=== PATIENT | female | born 1985 | race Caucasian/White ===

== ENCOUNTER 2019-06-16 17:33 | Outpatient (CLI) | payer OTHER ==
[~2019-06-16] VITALS: Ht 154.9 cm; Wt 77.7 kg
[2019-06-16 18:02] VITALS: BP 114/66
[2019-06-16 20:24] LABS: MICROSCOPIC NOT IND
== END 2019-06-16 20:55 | disposition home or self-care (01) ==
LOC: LDOP 17:33
PROVIDERS: ATTEND Obstetrics & Gynecology
DX: Z34.83 Encounter for supervision of other normal pregnancy, third trimester (principal); R10.9 Unspecified abdominal pain; Z3A.32 32 weeks gestation of pregnancy
CPT/HCPCS: 59025; 81003; 87086; 99211; G0463

== ENCOUNTER 2019-08-07 07:55 | Inpatient (IN) | payer OTHER ==
[~2019-08-07] VITALS: Ht 170.2 cm; Wt 81.8 kg
[2019-08-07] MEDS ORDERED: OXYTOCIN 30U/ 0.9% NaCL 500ML 500 ML IV PRN (08:09)
[2019-08-07] MEDS ORDERED: OXYTOCIN 30U/ 0.9% NaCL 500ML 500 ML IV ONE (08:09)
[2019-08-07 08:15] VITALS: BP 117/61
[2019-08-07] MEDS ORDERED: PLEASE ENTER HEIGHT AND WEIGHT MC SCH (08:30)
[2019-08-07] MEDS ORDERED: SODIUM CITRATE/CITRIC ACID 30 ML UDC PO PRN (08:30)
[2019-08-07] MEDS ORDERED: FENTANYL PF 100 MCG/2ML IVPush PRN (08:30)
[2019-08-07] MEDS ORDERED: TERBUTALINE 1 MG/ML, 1ML IVPush PRN (08:30)
[2019-08-07] MEDS ORDERED: METOCLOPRAMIDE 5 MG/ML, 2ML IVPush PRN (08:30)
[2019-08-07] MEDS ORDERED: CALCIUM CARBONATE 500 MG TAB.CHEW PO PRN (08:30)
[2019-08-07] MEDS ORDERED: ONDANSETRON 2MG/ML, 2ML IVPush PRN (08:30)
[2019-08-07] MEDS ORDERED: TERBUTALINE 1 MG/ML, 1ML SQ PRN (08:30)
[2019-08-07] MEDS ORDERED: FENTANYL PF 100 MCG/2ML IV PRN (08:30)
[2019-08-07] MEDS ORDERED: MISOPROSTOL 25 MCG TABLET VG PRN (08:30)
[2019-08-07 08:32] LABS: BASOPHILS # (AUTO) 0.04 x10^3/uL (0-0.1); BASOPHILS % (AUTO) 0 % (0-1); EOSINOPHILS # (AUTO) 0.05 x10^3/uL (0-0.4); EOSINOPHILS % (AUTO) 0 % (1-7); LYMPHOCYTES # (AUTO) 1.52 x10^3/uL (1-3.4); LYMPHOCYTES % (AUTO) 14 % (22-44); MD NO; MEAN CORPUSCULAR VOLUME 94.3 fL (80-100); MEAN PLATELET VOLUME 7.8 fL (7.4-10.4); MONOCYTES % (AUTO) 7 % (2-9); NEUTROPHILS # (AUTO) 8.88 x10^3/uL (1.8-6.8); NEUTROPHILS % (AUTO) 79 % (42-75); PLATELET COUNT 418 x10^3/uL (130-400); RED BLOOD COUNT 4.32 x10^6/uL (3.82-5.3); RED CELL DISTRIBUTION WIDTH 13.6 % (9.6-15.2)
[2019-08-07] MEDS ORDERED: MISOPROSTOL 25 MCG TABLET ONE ×2 (09:22→13:39)
[2019-08-07] MEDS ORDERED: MISOPROSTOL 200 MCG TABLET ONE (13:16)
[2019-08-07] MEDS ORDERED: LIDOCAINE 1%, 20ML ONE (13:16)
[2019-08-07] MEDS ORDERED: NEWBORN KIT ONE (13:16)
[2019-08-07] MEDS ORDERED: OXYTOCIN 30U/ 0.9% NaCL 500ML 500 ML ONE (13:40)
[2019-08-07] MEDS: LACTATED RINGERS 1,000 ML IV SCH ×2 (13:44→18:00)
[2019-08-07] MEDS ORDERED: FENTANYL/BUPIV./NS/PF 250 ML EPIDCONT SCH ×2 (15:39→23:46)
[2019-08-07] MEDS ORDERED: EPHEDRINE 50 MG/ML, 1ML IVPush PRN (16:00)
[2019-08-07] MEDS ORDERED: LACTATED RINGERS 1,000 ML IVBOLUS PRN (16:00)
[2019-08-07] MEDS ORDERED: FENTANYL PF 500 MCG, BUPIVACAINE/PF 0.5%, 30ML 62.5 ML in SODIUM CHLORIDE 0.9% 177.5 ML EPIDCONT SCH (16:30)
[2019-08-07] MEDS ORDERED: BUPIVACAINE 0.25% ONE ×2 (18:12→18:16)
[2019-08-07] MEDS ORDERED: FENTANYL PF 100 MCG/2ML ONE ×2 (18:12→18:16)
[2019-08-07] MEDS ORDERED: LIDOCAINE/PF 1.5%-EPI 1:200K, 30ML ONE (18:16)
[2019-08-07] MEDS ORDERED: FENTANYL/BUPIV./NS/PF 250 ML EPIDCONT ONE (18:16)
[2019-08-07] MEDS: D5%-LACTATED RINGERS 1,000 ML IV SCH (20:21)
[2019-08-07] MEDS ORDERED: LACTATED RINGERS 1,000 ML IV SCH (23:46)
[2019-08-08] MEDS ORDERED: EPHEDRINE 50 MG/ML, 1ML IVPush PRN
[2019-08-08] MEDS ORDERED: ONDANSETRON 2MG/ML, 2ML IVPush PRN
[2019-08-08] MEDS ORDERED: OXYTOCIN 30U/ 0.9% NaCL 500ML 500 ML ONE ×2 (03:41→05:58)
[2019-08-08] MEDS: OXYTOCIN 30U/ 0.9% NaCL 500ML 500 ML IV SCH ×2 (03:50→13:52)
[2019-08-08] MEDS ORDERED: MAGNESIUM HYDROXIDE 8%, 30ML UDC PO PRN (04:00)
[2019-08-08] MEDS ORDERED: MISOPROSTOL 200 MCG TABLET PO PRN (04:00)
[2019-08-08] MEDS ORDERED: ONDANSETRON 2MG/ML, 2ML IV PRN (04:00)
[2019-08-08] MEDS ORDERED: SIMETHICONE 80 MG CHEW TAB PO PRN (04:00)
[2019-08-08] MEDS ORDERED: ACETAMINOPHEN 325 MG TABLET PO PRN (04:00)
[2019-08-08] MEDS ORDERED: OXYcodone/APAP 5/325MG TABLET ONE (05:15)
[2019-08-08] MEDS ORDERED: IBUPROFEN 600 MG TABLET ONE (05:15)
[2019-08-08] MEDS: OXYcodone/APAP 5/325MG TABLET PO PRN ×5 (05:18→22:49)
[2019-08-08] MEDS: IBUPROFEN 600 MG TABLET PO PRN ×3 (05:18→17:54)
[2019-08-08] MEDS: PRENATAL VIT/IRON/FA 1 EACH TABLET PO SCH (08:45)
[2019-08-08] MEDS: DOCUSATE 100 MG CAPSULE PO PRN ×2 (08:45→17:06)
[2019-08-08 11:50] LABS: MEAN CORPUSCULAR HEMOGLOBIN 31.9 pg (27.0-34.8); MEAN CORPUSCULAR HGB CONC 34.1 g/dL (32.4-35.8); MEAN CORPUSCULAR VOLUME 93.7 fL (80-100); PLATELET COUNT 329 x10^3/uL (130-400); RED CELL DISTRIBUTION WIDTH 13.7 % (9.6-15.2)
[2019-08-08 12:00] VITALS: BP 115/69
[2019-08-08 12:05] LABS: MD YES
[2019-08-08 12:07] LABS: BAND#(MANUAL) 0.98 x10^3/uL; BANDS%(MANUAL) 5 % (0-7); LYMPH#(MANUAL) 0.78 x10^3/uL (1-3.4); LYMPHS% (MANUAL) 4 % (22-44); MONOS#(MANUAL) 1.17 x10^3/uL (0.3-2.7); MONOS% (MANUAL) 6 % (2-9); SEG#(MANUAL) 16.58 x10^3/uL (1.8-6.8); SEGS% (MANUAL) 85 % (42-75)
[2019-08-08 12:08] LABS: <PLATELET ESTIMATE> ADEQUATE; <PLT MORPHOLOGY> NORMAL PLT MORPH; <RBC MORPHOLOGY> NORMAL
[2019-08-08 16:58] VITALS: BP 110/64
[2019-08-08 19:46] VITALS: BP 107/66
[2019-08-08 23:56] VITALS: BP 111/69
[2019-08-09] MEDS: IBUPROFEN 600 MG TABLET PO PRN ×2 (03:11→09:16)
[2019-08-09] MEDS: OXYcodone/APAP 5/325MG TABLET PO PRN ×2 (03:12→08:26)
[2019-08-09 07:58] VITALS: BP 120/47
[2019-08-09] MEDS: PRENATAL VIT/IRON/FA 1 EACH TABLET PO SCH (08:25)
[2019-08-09] MEDS: DOCUSATE 100 MG CAPSULE PO PRN (08:26)
[2019-08-09] MEDS ORDERED: IBUP-1222 PO (09:01)
== END 2019-08-09 13:23 | disposition home or self-care (01) | DRG 807 ==
LOC: LDIP 07:55 → 2NW 08-08 08:03
PROVIDERS: ADMIT Obstetrics & Gynecology; ATTEND Obstetrics & Gynecology
PROC: 10E0XZZ Delivery of Products of Conception, External Approach (ICD-10-PCS; principal; 2019-08-08)
PROC: 0KQM0ZZ Repair Perineum Muscle, Open Approach (ICD-10-PCS; 2019-08-08)
PROC: 3E0R3BZ Introduction of Anesthetic Agent into Spinal Canal, Percutaneous Approach (ICD-10-PCS; 2019-08-08)
PROC: 00HU33Z Insertion of Infusion Device into Spinal Canal, Percutaneous Approach (ICD-10-PCS; 2019-08-08)
PROC: 10907ZC Drainage of Amniotic Fluid, Therapeutic from Products of Conception, Via Natural or Artificial Opening (ICD-10-PCS; 2019-08-08)
DX: O69.81X0 Labor and delivery complicated by cord around neck, without compression, not applicable or unspecified (principal); Z37.0 Single live birth; Z3A.39 39 weeks gestation of pregnancy; O70.1 Second degree perineal laceration during delivery; Z82.49 Family history of ischemic heart disease and other diseases of the circulatory system; Z83.3 Family history of diabetes mellitus; Z87.891 Personal history of nicotine dependence
CPT/HCPCS: 36415; J3490; 85025; 86592; 86850; 86900; G0378; J3010; J2590; J7120